=== PATIENT | female | born 1945 | race African-American/Black ===

== ENCOUNTER 2024-03-21 18:56 | Inpatient (IN) | payer MEDICARE ==
[~2024-03-21] VITALS: Ht 167.6 cm; Wt 46.7 kg
[2024-03-21 20:36] LABS: BASOPHILS % 0.9 % (0.0-2.0); EOSINOPHILS % 1.3 % (0.0-5.0); HEMATOCRIT. 39.9 % (36.0-48.0); HEMOGLOBIN. 13.8 g/dL (12.0-16.0); MEAN CORPUSCULAR HEMOGLOBIN 32.2 pg (28.0-32.0); MEAN CORPUSCULAR HGB CONC 34.6 g/dL (31.0-37.0); MEAN CORPUSCULAR VOLUME 92.9 fL (81.0-99.0); MEAN PLATELET VOLUME 7.8 fl (7.4-10.4); MONOCYTES % 8.5 % (2.0-8.0); NEUTROPHILS % 69.3 % (40.0-76.0); PLATELET 303 x1000/uL (130-400); RED BLOOD CELL COUNT 4.29 mill/uL (4.2-5.4); RED CELL DISTRIBUTION WIDTH 14.7 % (11.6-14.6); WHITE BLOOD COUNT 4.9 x1000/uL (4.5-11.0)
[2024-03-21 20:42] LABS: CHLORIDE 102 mEq/L (98-107); POTASSIUM 3.9 mEq/L (3.5-5.1); SODIUM 137 mEq/L (136-145)
[2024-03-21 20:43] LABS: CALCIUM 10.2 mg/dL (8.7-10.4); CARBON DIOXIDE 27 mEq/L (21-32)
[2024-03-21 20:48] LABS: CREATININE 0.8 mg/dL (0.6-1.0); GLUCOSE 93 mg/dL (70-105); TROPONIN I HIGH SENSITIVITY < 4 ng/L (3.0-34); UREA NITROGEN BLOOD 8 mg/dL (9-23)
[2024-03-21 20:49] LABS: INR 1.1; PROTHROMBIN TIME 11.7 sec (9.6-11.0)
[2024-03-21 22:35] LABS: TROPONIN I HIGH SENSITIVITY < 4 ng/L (3.0-34)
[2024-03-22] MEDS ORDERED: DONE10TA43 PO (05:22)
[2024-03-22] MEDS ORDERED: ATOR40TA70 PO (05:22)
[2024-03-22] MEDS ORDERED: AMLO2.5T45 PO (05:22)
[2024-03-22] MEDS ORDERED: CLONIDINE 0.1MG TABLET PO PRN (05:30)
[2024-03-22] MEDS ORDERED: ACETAMINOPHEN 325MG TABLET PO PRN (05:30)
[2024-03-22] MEDS ORDERED: DOCUSATE SODIUM 100MG CAPSULE PO PRN (05:30)
[2024-03-22] MEDS ORDERED: MAGNESIUM/ALUMINUM HYDROXIDE/SIMETHICONE 30ML UDC PO PRN (05:30)
[2024-03-22 09:50] VITALS: BP 157/60; PULSE 67; RESP 18; TEMP 97.1
[2024-03-22 10:32] LABS: THYROID STIMULATING HORMONE 2.35 uIU/mL (0.55-4.78)
[2024-03-22 11:20] LABS: TROPONIN I HIGH SENSITIVITY < 4 ng/L (3.0-34)
[2024-03-22 11:40] VITALS: BP_SYST 105; BP_SYST 141; BP_SYST 151; BP_DIAS 69; BP_DIAS 73; BP_DIAS 77
[2024-03-22 12:00] VITALS: BP 151/65; PULSE 62; RESP 18; TEMP 97.8
[2024-03-22 12:58] LABS: VITAMIN B12 SERUM 273 pg/mL (211-911)
[2024-03-22 16:00] VITALS: BP 132/79; PULSE 73; RESP 18; TEMP 97.4
[2024-03-22 17:29] LABS: TROPONIN I HIGH SENSITIVITY < 4 ng/L (3.0-34)
[2024-03-22 18:53] LABS: CLARITY URINE CLOUDY (CLEAR); COLOR URINE DARK YELLOW (YELLOW); GLUCOSE URINE NEGATIVE (NEGATIVE); KETONES URINE 1+ (NEGATIVE); LEUKOCYTE ESTERASE URINE 1+ (NEGATIVE); NITRITE URINE POSITIVE (NEGATIVE); OCCULT BLOOD URINE NEGATIVE (NEGATIVE); PROTEIN URINE NEGATIVE (NEGATIVE)
[2024-03-22 19:04] LABS: BACTERIA URINE 4+; RBC URINE 0-2 /hpf (0-2); SQUAMOUS EPITHELIAL CELL URINE 1+ /lpf (RARE/1+)
[2024-03-22] MEDS ORDERED: LEVO-65 MT (19:10)
[2024-03-22 20:00] VITALS: BP 135/75; PULSE 87; RESP 19; TEMP 97.5
[2024-03-22] MEDS: CEFTRIAXONE 1GM/50ML 50 ML IV SCH (20:53)
[2024-03-22] MEDS: PANTOPRAZOLE 40MG DR TABLET PO SCH (20:53)
[2024-03-23] VITALS: BP 104/59; PULSE 84; RESP 19; TEMP 97.5
[2024-03-23 04:00] VITALS: BP 106/68; PULSE 83; RESP 18; TEMP 97.9
[2024-03-23 08:00] VITALS: BP 117/65; PULSE 75; RESP 18; TEMP 98
[2024-03-23] MEDS: ENOXAPARIN 30MG/0.3ML SYR SUBCUT SCH (08:40)
[2024-03-23] MEDS: ASPIRIN 81MG TABLET PO SCH (08:40)
[2024-03-23 12:00] VITALS: BP 124/59; PULSE 62; RESP 18; TEMP 97.8
[2024-03-23 13:51] VITALS: BP 124/59; PULSE 62; TEMP 97.8; O2SAT 96
[2024-03-24] MEDS ORDERED: FAMOTIDINE 20MG TABLET PO SCH (09:00)
== END 2024-03-23 15:05 | disposition home or self-care (01) | DRG 690 ==
LOC: ER 18:56 → 5WST 21:39 → EDBEDREQ 21:50 → EDBEDREQSVC 21:50 → EDBEDREQTM 21:50 → 7EST 03-22 09:34
PROVIDERS: ADMIT Internal Medicine Pulmonary Disease; ATTEND Internal Medicine Pulmonary Disease
PROC: 4A00X4Z Measurement of Central Nervous Electrical Activity, External Approach (ICD-10-PCS; principal; 2024-03-23)
DX: N39.0 Urinary tract infection, site not specified (principal); F03.90 Unspecified dementia, unspecified severity, without behavioral disturbance, psychotic disturbance, mood disturbance, and anxiety; R55 Syncope and collapse; E11.9 Type 2 diabetes mellitus without complications; I10 Essential (primary) hypertension; J44.9 Chronic obstructive pulmonary disease, unspecified; W18.30XA Fall on same level, unspecified, initial encounter; Z79.899 Other long term (current) drug therapy
CPT/HCPCS: 36415; 71045; 80048; 80061; 81003; 82607; 84443; 84484; 85025; 93005; 93880; 95816; 99285; J0696; J1650